=== PATIENT | female | born 1955 | race Caucasian/White ===

== ENCOUNTER 2017-12-05 18:09 | Inpatient (IN) | payer MEDICARE, MEDICAID, SELFPAY ==
[2017-12-05] VITALS (28 sets, daily range): BP systolic 105–145; BP diastolic 54–93; PULSE 78–120; RESP 12–21; TEMP 36.1–37; O2SAT 94–100
--- NOTE | 2017-12-05 | DI.RAD.S_ITS ---
PROCEDURE: XR ACUTE ABDOMEN SERIES INDICATIONS: pain and distention after colonoscopy r/o perforation TECHNIQUE: One view chest and two views of the abdomen were acquired. COMPARISON: None. FINDINGS: Surgical changes and devices: None. Chest: Prominent free air is noted below the diaphragm, verified on decubitus view of the abdomen. Lungs are clear. Heart size is normal. No pleural effusions. Abdomen: Bowel gas pattern is gassy as expected post colonoscopy. Large air-fluid level in the stomach. No suspicious calcifications. Visualized solid organ contours appear normal. Bones: No suspicious bony lesions. IMPRESSION: 1. Pneumoperitoneum suspect for perforated viscus. 2. No acute findings in the chest. 3. Bowel pattern appears normal post colonoscopy noting distended stomach with prominent air fluid level. Note: Images were reviewed in person with Dr. Leonard at 1220 hrs. on 12/05/2017 Dictated by: Vladislav Dahl M.D. on 12/05/2017 at 12:15 Approved by: Vladislav Dahl M.D. on 12/05/2017 at 12:22
--- NOTE | 2017-12-05 | PATH_ITS ---
[facility] Accession Number: [id number] . 01 Material submitted: . PART A: GE JUNCTION BIOPSY PART B: POLYP AT 15CM . 02 Diagnosis: A. Gastroesophageal Junction, Biopsy: Squamous epithelium with mild active inflammation and invasive pseudohyphae consistent with esophageal candidiasis. Scant columnar epithelium negative for intestinal metaplasia. Negative for dysplasia and malignancy. . B. Colon, Polyp at 15 cm, Biopsy: Hyperplastic polyp. MRV/12/10/2017 . 02 Electronically signed: . Natalia Johnson MD, Pathologist NPI- [id number] . 01 Gross description: . A. The specimen is received in a container of formalin, labeled with the patient's name, designated GE junction biopsy. The specimen consists of three 0.2-0.3 cm, pale sumner-rawls biopsies and minute fragments of possible tissue and/or mucus which may not survive processing. ET cassette A1. B. The specimen is received in a container of formalin, labeled with the patient's name, designated polyp at 15 cm. The specimen consists of a 0.9 cm aggregate of minute-0.4 cm, thin, sumner-rawls biopsies. Entirely submitted in cassette B1. ([id number]) /FRR . 02 Microscopic: . Part A: A PAS stain was performed to evaluate for fungal organisms and is negative. However, the area of interest is not represented on the deeper levels used for the special stain. The control stain showed appropriate reactivity. . 02 Pathologist provided ICD-10: B37.81, K20.9 . 02 CPT . 539841, 560658, [id number] Performed at: 01 [facility] [address] [place] [address] [address], [place], [place] [id number] MD Roger Grissom MD Phone: [phone] Performed at: 02 [facility] [id number] [place] [id number] MD Diaz Richter MD Phone: [phone]
--- NOTE | 2017-12-05 09:41 | PM.PREOP ---
Pre-operative Note Interval Note Pre-op Check: History & Physical Reviewed by Physician and Exam Performed H&P completed within 30 days and has changed as indicated here:: Patient very nervous. She is in sinus tachycardia. She was also this way during her office visit.
[2017-12-05] MEDS: MIDAZOLAM 2 MG/2 ML VIAL IV (09:51)
[2017-12-05] MEDS: LACTATED RINGERS 1,000 ML 42 ML IV ×3 (10:45→16:17)
--- NOTE | 2017-12-05 11:22 | PM.OP.ENDO ---
Operative Date/Time/Diagnoses - Date of procedure: 12/05/17 Time of procedure: 11:23 Pre-op diagnosis: Weight loss abdominal pain screening exam April Post-op diagnosis: same (Stricture of the esophagus. Small polyps at 15 cm. Zeng colonic diverticulosis.) Procedure & Clinicians Study performed: EGD with biopsy and balloon dilatation through the scope. Colonoscopy with cold biopsy Same procedure as scheduled: Yes Indications: Weight loss , abdominal pain, screening Surgeon: Cheng Leonard Procedure Notes SCOAP/Timeout: Performed Procedure in detail: The patient was placed supine on her bed in the operating room. The anesthesiologist was involved due to her autistic condition, concerns over her ability to cooperate especially if sedated, and concerns about her airway and the need to carefully monitor her sedation. A bite block was inserted and topical anesthetic applied to the oropharynx. Scope was advanced through the bite block into the esophagus. The esophagus was normal to reach the GE junction. There was a stricture which I popped through and dilated just with the scope. The stomach insufflated well. The pyloric channel was patent. I saw no lesions in the body and antrum of the stomach. The duodenum was normal to the 3rd part. The scope was brought back into the stomach and retroflexed. There was no evidence of a hiatal hernia. There were no lesions of the proximal stomach. The scope was straightened and brought back into the area where the stricture had been. This was biopsied. I then passed a 12-15 mm diameter balloon through the scope. I dilated the stricture progressively until ultimately reaching the 15 mm marked. The balloon was removed. There was no unusual bleeding or evidence of tear. The scope the scope was removed. The patient was repositioned and a digital exam performed on the rectum. She had decreased sphincter tone. The scope was inserted advanced through the rectum into the sigmoid. Jose good sigmoid due to very large diverticula in this area. Family I made my way through the sigmoid into the descending transverse and ascending colon. The cecum was reached identified by the of the appendiceal opening and the ileocecal valve. A stiffener were had been applied to get to that region. The terminal ileum was cannulated and was normal in appearance. Scope was gradually brought out. I did note diverticuli throughout the colon. Heaviest concentration was in the sigmoid. The scope was brought to 15 cm where 3 polyps were identified and removed. These were all tiny. The scope was retroflexed in the rectum. Patient was noted to have small internal hemorrhoids with some scarring. The scope was removed and the patient tolerated the procedures well. Scope withdrawal time: 7 min Sedation minutes: 0 Findings: diverticulosis, internal hemorrhoids and stricture (Esophagus at the GE junction) Specimen(s): other (Polyps and stricture) Complications: none Recommendations: Colonscopy in 5 years (Due to family history) and Prescription for (Omeprazole) Plan for aftercare: Follow-up as needed Disposition: PACU
--- NOTE | 2017-12-05 12:10 | SUR.PHASEI ---
XRAYS TAKEN, PT COMTINUES TO MOAN AND C/O ABDOMEN PAIN, ABDOMEN REMAINS ROUND DISTENDED AND SLIGHTLY FIRM, PT IS PASSING FLATUS AND IS BELCHING.
--- NOTE | 2017-12-05 12:26 | SUR.PHASEI ---
PT STATING SHE FEELS BETTER BUT MY STOMACH STILL HURTS
--- NOTE | 2017-12-05 12:54 | SUR.PHASEI ---
PT UP TO BEDSIDE COMODE TO VOID, CONTINUES TO PASS GAS. STATING SHE FEELS A LITTLE BIT BETTER BUT MY STOMACH STILL HURTS. NO LONGER GROANING AND PT APPEARS MORE COMFORTABLE, ABDOMEN REMAINS FIRM AND IS SLIGHTLY LESS DISTENDED AT THIS TIME.
[2017-12-05] MEDS: CEFOTETAN 2 GM/50 ML PIGGYBACK IV (13:28)
--- NOTE | 2017-12-05 13:29 | SUR.PHASEII ---
family and care takers in to sit with pt at bedside.
[2017-12-05] MEDS: metroNIDAZOLE 500 MG/100 ML PIGGYBACK 100 MG IV ×2 (13:43→19:29)
--- NOTE | 2017-12-05 13:52 | SUR.PHASEII ---
up to bedside commode to void and passing gas. family and caare givers remain at bedside with pt.
--- NOTE | 2017-12-05 14:08 | SUR.PHASEII ---
REPORT TO DIRECTOR OF ASSESSINGNORA MCCARTHY PT TO OR.
--- NOTE | 2017-12-05 14:46 | SUR.OPER ---
Supine on padded OR bed, head on pillow, arm padded and tucked at side, legs uncrossed, safety belt at thigh, tape over blanket over lower legs .
[2017-12-05] MEDS: BUPIVACAINE 0.5% (PF) 30 ML VIAL INJ (15:02)
[2017-12-05] MEDS: METHYLENE BLUE 50 MG/10 ML VIAL 25 MG INJ (16:04)
--- NOTE | 2017-12-05 16:56 | P.OP_ITS ---
Operative Date/Time/Diagnoses - Date of procedure: 12/05/17 Time of procedure: 16:40 Pre-op diagnosis: Perforated viscus after EGD and colonoscopy Post-op diagnosis: same Procedure & Clinicians Procedure: Laparoscopy. Esophagoscopy Same procedure as scheduled: Yes Indications: Free air Surgeon: Cheng Leonard Lean Process Deployment Consultant: Diaz Restrepo Anesthesia Type: General Operative Notes Findings: No evidence perforation except for air within the leaves of the gastrohepatic and gastrosplenic mesentery Closure Type: primary Specimen(s): none sent Implants & Drains: None Estimated Blood Loss (mL): 10 Blood products transfused: none Procedure in detail: Patient is placed supine on the operating table underwent general endotracheal anesthesia. With the insertion of that gastric tube in the stomach decompressed nicely and I decided to proceed with a laparoscopy. She was prepped and draped in the usual fashion. Small incision was made beneath the umbilicus and carried down under direct vision peritoneal cavity. Stay sutures of 0 Polysorb were placed the fascia. Bass cannula was inserted. I placed an additional port in the left abdomen at the level of umbilicus. I examined the pelvis and could not see any free fluid. There was no evidence of any perforation. I could examine the colonic wall well. Around the stomach there were obvious gas bubbles within the leafs of the gastric mesenteries. I was highly suspicious that the patient had an esophage perforation. Additional ports were placed in the upper abdomen and 1 in the right abdomen to hold the liver up. All of these were 5 mm ports. I dissected medially and anteriorly around the esophagus and could find no evidence of any injury. We divided short gastrics the proximal 3rd so I could rotate the stomach and examined the posterior wall of the esophagus in the left wall well. Again there was no evidence of any trauma to the region. We inserted a flexible endoscope and examined the area. There was no obvious perforation. There was no air bubbling noted around the exposed areas of the esophagus. I could see the light well and the movement of the scope through the area by examining the esophageal wall where I had dissected it free. The endoscope was brought just above the area of the dilatation and blue dye was injected and again there was no release of any blue dye. Air was insufflated in the stomach distended and I could see no evidence of any bubbling. At this point with no obvious major injury to the esophagus we decided to look at the rectum again. After examining and normal sigmoid to the peritoneal reflection, a rigid scope was inserted into the rectum and air insufflated pressing the sigmoid. Fluid had been placed in the pelvis. There was no evidence of any air bubbling. Air and rigid scope were removed. At this point with no obvious injury or source of the air which was almost all right around the stomach I decided to stop the procedure examining the descending colon and the right colon transverse colon there was no obvious trauma to any of those areas. During the procedure adhesed small amount of adhesions of the cecum to the anterior abdominal wall and the sigmoid to the left anterior abdominal wall were taken down. There was very little blood loss through the procedure. Patient was awakened and taken recovery room good condition. Plan to continue broad-spectrum antibiotics and consider a Gastrografin study of the esophagus. Complications: none Condition: stable Disposition: PACU Plan for aftercare: Admit to inpatient status jean paul GÓMEZO
--- NOTE | 2017-12-05 18:31 | PC.NURSE ---
patient is asleep on admission to floor from pacu at 1730. iv is patent and scd's on are on and active. ba is active. history and admission done with family/caregivers at bedside. cousin Maria R is her gaurdian, suellen helps provide her care. Richar is patient's other caregiver, who will be staying overnight night. patient is strict npo and caregivers are aware of that. pulse ox is on, 98% on 1l nc. call light is in reach. caregivers oriented to use of call light, and verbalize understanding not to get patient up out of bed without staff present. will continue to monitor.
[2017-12-05] MEDS: DEXTROSE 5%-0.45% NS 1,000 ML 100 ML IV (18:46)
[2017-12-05] MEDS: FLUCONAZOLE 200 MG/100 ML PIGGYBACK IV (20:23)
[2017-12-05] MEDS: CEFTRIAXONE 1 GM/50 ML FROZ.PIGGY IV (21:04)
[2017-12-05 21:36] LABS: Add Manual Diff / Slide Review NO; Eosinophils Percent Auto 0.1 % (2-4); Hematocrit 41.4 % (36-46); Hemoglobin 14.2 g/dL (12.0-16.0); Lymphocytes Percent Auto 2.6 % (25-40); Mean Corpuscular HGB Conc 34.2 % (30-36); Mean Corpuscular Volume 93.5 fL (80-100); Monocytes Percent Auto 2.2 % (3-14); Neutrophils Absolute Auto 12600 /uL (3000-5900); Neutrophils Percent Auto 95.1 % (50-75); Platelet Count 201 X10^3/uL (150-400); Red Blood Cell Count 4.43 X10^6/uL (4.0-5.2); Red Cell Distribution Width 12.9 % (11.6-14.8); White Blood Cell Count 13.2 X10^3/uL (4.5-11.0)
--- NOTE | 2017-12-06 | DI.CT.S_ITS ---
PROCEDURE: CT CHEST ABDOMEN W CON INDICATIONS: R/O PERFORATION OF ESOPHAGUS SCAN AFTER GASTROGRAFIN SWALLOW TECHNIQUE: After the administration of oral contrast and intravenous contrast, 5 mm thick sections acquired from the lung apices to the iliac crests. 5 mm coronal and sagittal reformats were performed, with additional 7 mm coronal MIP reformats through the lungs. For radiation dose reduction, the following was used: automated exposure control, adjustment of mA and/or kV according to patient size. COMPARISON: [facility], CT, ABDOMEN/PELVIS WITH CONTRAST, 10/31/2017, 13:17. FINDINGS: Image quality: Excellent. CHEST: Lungs and pleura: No acute air space opacities except for linear atelectasis at the right lung base. No pleural effusions or pneumothorax but there is mild pneumomediastinum and a small amount of extravasated air extends into the subcutaneous soft tissues, tracking into the abdominal body wall. Central and peripheral airways are patent and normal in caliber. Mediastinum: Heart size is normal. No pericardial effusion. No mediastinal or hilar adenopathy by size criteria. Thoracic aorta and central pulmonary arteries are normal in size. Esophagus is normal in caliber. No hiatal hernia. Extravasation of oral contrast into the mediastinum is not present. No pleural oral contrast is seen. Chest wall: No axillary or supraclavicular adenopathy by size criteria. Thyroid gland appears normal where well visualized. ABDOMEN: Solid organs: Liver is normal in size and enhancement. Gallbladder appears normal. Biliary system is non dilated. Pancreas enhances normally. Spleen is normal in size and enhancement. No adrenal nodules. Kidneys are normal in size and enhancement, without hydronephrosis. Peritoneum and bowel: Bowel loops demonstrate normal wall thickness and caliber. No free fluid or air but there is retroperitoneal gas tracking along the gastric margin, and extending to a small degree superficially into the subcutaneous soft tissues.. Nodes and vessels: No retroperitoneal or mesenteric adenopathy by size criteria. Aorta and inferior vena cava are normal in caliber. Bones: No suspicious bony lesions. No vertebral body compression fractures. Miscellaneous: No ventral hernias. IMPRESSION: Mild pneumomediastinum, mild pneumoretroperitoneum, no extravasation of free air into the peritoneal space or pleural space is seen. No extravasation of ingested oral contrast into the mediastinum or pleural space or into the peritoneal space or retroperitoneum is found. Mild linear atelectasis right lung base posteriorly, medially. Dictated by: Boom Perkins M.D. on 12/06/2017 at 12:17 Approved by: Boom Perkins M.D. on 12/06/2017 at 12:24
[2017-12-06] MEDS: metroNIDAZOLE 500 MG/100 ML PIGGYBACK 100 MG IV ×4 (00:37→19:03)
[2017-12-06] MEDS: INSULIN ASPART 100 UNIT/ML INSULN PEN SUBCUT ×4 (00:37→17:55)
[2017-12-06 01:31] VITALS: BP 121/64; PULSE 100; RESP 20; TEMP 36.4; O2SAT 98
--- NOTE | 2017-12-06 04:56 | PC.NURSE ---
NOC Note: Pt tearful early this morning stating that she wants to go home and she misses eating. Reassurance given, caregiver rooming in for the night. SBA to use BSC. Pt denies pain but signs of discomfort noted with transferring from bed to BSC, Pt declined pain medication but was willing to try ans ice pack on her ABD. Drsgs to ABD are CDI.
[2017-12-06 06:24] LABS: Add Manual Diff / Slide Review NO; Basophils Percent Auto 0.4 % (0-2); Hematocrit 37.5 % (36-46); Hemoglobin 13.1 g/dL (12.0-16.0); Lymphocytes Percent Auto 5.6 % (25-40); Mean Corpuscular HGB Conc 34.8 % (30-36); Mean Corpuscular Hemoglobin 32.5 PG (26-34); Mean Corpuscular Volume 93.4 fL (80-100); Monocytes Percent Auto 3.2 % (3-14); Neutrophils Absolute Auto 13600 /uL (3000-5900); Neutrophils Percent Auto 90.8 % (50-75); Platelet Count 205 X10^3/uL (150-400); Red Blood Cell Count 4.02 X10^6/uL (4.0-5.2); Red Cell Distribution Width 12.9 % (11.6-14.8)
[2017-12-06 06:26] VITALS: BP 109/59; PULSE 90; RESP 18; TEMP 36.8; O2SAT 97
[2017-12-06 06:28] LABS: BUN Creatinine Ratio 12.9 (6-22); Blood Urea Nitrogen 9 mg/dL (7-17); Calcium 8.8 mg/dL (8.4-10.2); Carbon Dioxide 22 mmol/L (22-32); Chloride 103 mmol/L (98-107); Estimated Glomerular Filt Rate > 60.0 mL/min (>60); Glucose 259 mg/dL (70-100); HEMOLYSIS < 15 (0-50); Sodium 139 mmol/L (137-145)
[2017-12-06 07:40] VITALS: BP 116/68; PULSE 105; RESP 16; TEMP 37.3; O2SAT 96
--- NOTE | 2017-12-06 08:00 | DI.RAD.S_ITS ---
PROCEDURE: FL BARIUM SWALLOW INDICATIONS: 61 year-old female with pneumoperitoneum after recent colonoscopy and EGD procedures. Assess for esophageal or gastric rupture. COMPARISON: [facility], CR, XR ACUTE ABDOMEN SERIES, 12/05/2017, 11:54. [facility], CT, ABDOMEN/PELVIS WITH CONTRAST, 10/31/2017, 13:17. FINDINGS: Examination is limited due to autistic patient. Function: There is ready flow of Gastrografin contrast from the esophagus into the nondistended stomach. No contrast extravasation is identified. At the request of the surgeon, dilute barium was not administered for further evaluation at this point. Morphology: Single contrast images demonstrate no extravasation. No extrinsic mass effects or diverticula. Limited images of the stomach demonstrate normal appearance. IMPRESSION: A source of distal esophageal or gastric perforation is not identified fluoroscopically to explain recent postprocedural pneumoperitoneum. Patient will be transferred for CT scan for further evaluation as specifically requested by [facility]. Dictated by: Ben Hurt M.D. on 12/06/2017 at 12:12 Approved by: Ben Hurt M.D. on 12/06/2017 at 12:17
[2017-12-06] MEDS: LACTATED RINGERS 1,000 ML 100 ML IV (08:32)
[2017-12-06] MEDS: PANTOPRAZOLE 40 MG VIAL IV (08:38)
[2017-12-06] MEDS: CEFTRIAXONE 1 GM/50 ML FROZ.PIGGY IV ×2 (08:38→21:12)
[2017-12-06] MEDS: ENOXAPARIN 40 MG/0.4 ML SYRINGE SUBCUT (08:38)
[2017-12-06] MEDS: FLUCONAZOLE 100 MG/50 ML PIGGYBACK IV (10:24)
--- NOTE | 2017-12-06 11:30 | CM.DANOTE ---
DCP Assessment: Pt is a 61 yo female, resident of [place]. Pt admitted inpatient as of 12/05/17 for EGD/colonoscopy; w/h/o abd pain, nausea, and throwing up per notes. Pt's PCP is DAVE Tolliver, Insurance is Medicare/Medicaid. Introduced SW role this morning to pt's cousin/legal guardian Carolyn Suazo P# [phone], work P# [phone] (legal guardian since 1981). Pt lying in bed, eyes mostly closed during this conversation. Also present were two women/cgs from [facility]. This agency provides pt a total of 6 cgs, that collectively, provide around the clock care for pt. They have been involved since December 2016. Per cg; Pt mostly requires supervision, then w/more prompting: pt lives w/a roommate, does not drive, requires assist w/bathing, grooming, meal prep, meds and most ADLs. Pt's family/cgs somewhat distracted by a 16 mo old in the rm and anxious about whats next for pt. All appreciative for the visit and would like another visit Saturday if possible. This COMPENSATION ADJUSTER hopes to glean more information at that time. Carolyn expects pt to return home when medically cleared. No h/o HH or SNF. No H+P to indicate pt's baseline, reviewed last clinic visit note by Lindsey Tolliver; pt w/developmental disability. Following closely for coordination of safe DCP; pending medical course / POC. Natalia Frias COMPENSATION ADJUSTER
[2017-12-06 15:35] VITALS: BP 150/89; PULSE 98; RESP 18; TEMP 37; O2SAT 98
--- NOTE | 2017-12-06 17:40 | PM.PNPO.1 ---
Subjective Date Patient Seen: 12/06/17 Time Patient Seen: 12:40 Interval history: The patient is feeling much better. Very little abdominal pain. Exam Vital Signs (past 8 hours): Vital Signs - 8 hr 12/06/17 15:35 Temperature 98.6 F Pulse Rate 98 H Respiratory Rate 18 Blood Pressure 150/89 H Pulse Oximetry 98 Pulse Oximetry 98 Oxygen Delivery Method Nasal Cannula Oxygen Flow Rate 0 Narrative Exam Narrative: Lungs are clear to auscultation. Good effort. Abdomen is soft. Dressings are intact. Objective Imaging CT scan - chest: My impression: No evidence of leak on this or the barium swallow. Radiologist's impression: Agree with the radiologist's report which was the same. Labs Result Diagrams: 12/06/17 06:00 12/06/17 06:00 Labs: Laboratory Results - last 24 hr 12/05/17 12/06/17 12/06/17 21:28 06:00 06:00 WBC 13.2 H 15.0 H RBC 4.43 4.02 Hgb 14.2 13.1 Hct 41.4 37.5 MCV 93.5 93.4 MCH 32.0 32.5 MCHC 34.2 34.8 RDW 12.9 12.9 Plt Count 201 205 Neut % (Auto) 95.1 H 90.8 H Lymph % (Auto) 2.6 L 5.6 L [place] % (Auto) 2.2 L 3.2 Eos % (Auto) 0.1 L 0.0 L Baso % (Auto) 0.0 0.4 Neut # (Auto) 99969 H 16720 H Sodium 139 Potassium 4.0 Chloride 103 Carbon Dioxide 22 BUN 9 Creatinine 0.70 Estimated GFR > 60.0 BUN/Creatinine Ratio 12.9 Glucose 259 H Calcium 8.8 Assessment & Plan Post-op Postoperative Procedures Operation Date: 12/05/17 09:45 Actual Procedures Side Surgeon p Esophagogastroduodenoscopy Cheng Leonard MD s Colonoscopy Cheng Leonard MD Operation Date: 12/05/17 13:45 Actual Procedures Side Surgeon p EXPLORATORY LAPAROSCOPY WITH EGD Cheng Leonard MD Postoperative day: 1 Postoperative status: doing well and other (Glucose is elevated. Changed her from D5 to LR. Seems to have brought her sugars down nicely.) Postoperative plan: other (Change IV fluids to LR. Start Lovenox for DVT prophylaxis. Diet tomorrow morning) Time Spent With Patient 25 - 35 minutes (Patient is seen twice today.)
--- NOTE | 2017-12-06 17:46 | P.PN_ITS ---
Subjective Date Patient Seen: 12/06/17 Time Patient Seen: 12:40 Interval history: The patient is feeling much better. Very little abdominal pain. Exam Vital Signs (past 8 hours): Vital Signs - 8 hr 3 12/06/17 15:35 Temperature 98.6 F Pulse Rate 98 H Respiratory Rate 18 Blood Pressure 150/89 H Pulse Oximetry 98 Pulse Oximetry 98 Oxygen Delivery Method Nasal Cannula Oxygen Flow Rate 0 Narrative Exam Narrative: Lungs are clear to auscultation. Good effort. Abdomen is soft. Dressings are intact. Objective Imaging CT scan - chest: My impression: No evidence of leak on this or the barium swallow. Radiologist's impression: Agree with the radiologist's report which was the same. Labs Result Diagrams: 12/06/17 06:00 12/06/17 06:00 Labs: Laboratory Results - last 24 hr 12/05/17 12/06/17 12/06/17 21:28 06:00 06:00 WBC 13.2 H 15.0 H RBC 4.43 4.02 Hgb 14.2 13.1 Hct 41.4 37.5 MCV 93.5 93.4 MCH 32.0 32.5 MCHC 34.2 34.8 RDW 12.9 12.9 Plt Count 201 205 Neut % (Auto) 95.1 H 90.8 H Lymph % (Auto) 2.6 L 5.6 L [place] % (Auto) 2.2 L 3.2 Eos % (Auto) 0.1 L 0.0 L Baso % (Auto) 0.0 0.4 Neut # (Auto) 26410 H 16833 H Sodium 139 Potassium 4.0 Chloride 103 Carbon Dioxide 22 BUN 9 Creatinine 0.70 Estimated GFR > 60.0 BUN/Creatinine Ratio 12.9 Glucose 259 H Calcium 8.8 Assessment & Plan Post-op Postoperative Procedures Operation Date: 12/05/17 09:45 Actual Procedures Side Surgeon p Esophagogastroduodenoscopy Cheng Leonard MD s Colonoscopy Cheng Leonard MD Operation Date: 12/05/17 13:45 Actual Procedures Side Surgeon p EXPLORATORY LAPAROSCOPY WITH EGD Cheng Leonard MD Postoperative day: 1 Postoperative status: doing well and other (Glucose is elevated. Changed her from D5 to LR. Seems to have brought her sugars down nicely.) Postoperative plan: other (Change IV fluids to LR. Start Lovenox for DVT prophylaxis. Diet tomorrow morning) Time Spent With Patient 25 - 35 minutes (Patient is seen twice today.)
[2017-12-06 19:58] VITALS: BP 136/78; PULSE 113; RESP 18; TEMP 36.8; O2SAT 97
[2017-12-07 00:02] VITALS: BP 142/68; PULSE 93; RESP 18; TEMP 37.1; O2SAT 95
[2017-12-07] MEDS: LACTATED RINGERS 1,000 ML 100 ML IV (00:10)
[2017-12-07] MEDS: metroNIDAZOLE 500 MG/100 ML PIGGYBACK 100 MG IV ×3 (00:11→12:44)
--- NOTE | 2017-12-07 02:08 | PC.NURSE ---
Assumed care of pt from outgoing shift at 2300, 6-1... Pt asleep at this time, caregiver in room,asleep. fluids infusing, pt rr regular, no distress noted, bed alarm on, side rails upx3. will continue to monitor pt for safety. 0030 update- pt IV beeping, given medications and fluids, tubing changed. pt compliant with nursing assessments. will continue to monitor pt for safety.
[2017-12-07 05:11] VITALS: BP 123/71; PULSE 92; RESP 18; TEMP 36.4; O2SAT 96
[2017-12-07 06:24] LABS: Add Manual Diff / Slide Review NO; Basophils Percent Auto 0.1 % (0-2); Hematocrit 38.1 % (36-46); Hemoglobin 13.1 g/dL (12.0-16.0); Lymphocytes Percent Auto 17.7 % (25-40); Mean Corpuscular HGB Conc 34.3 % (30-36); Mean Corpuscular Volume 93.3 fL (80-100); Monocytes Percent Auto 5.3 % (3-14); Neutrophils Absolute Auto 9100 /uL (3000-5900); Neutrophils Percent Auto 76.9 % (50-75); Platelet Count 207 X10^3/uL (150-400); Red Blood Cell Count 4.08 X10^6/uL (4.0-5.2); Red Cell Distribution Width 13.1 % (11.6-14.8); White Blood Cell Count 11.9 X10^3/uL (4.5-11.0)
[2017-12-07 08:26] VITALS: BP 140/82; PULSE 78; RESP 18; TEMP 37.1; O2SAT 96
[2017-12-07] MEDS: ENOXAPARIN 40 MG/0.4 ML SYRINGE SUBCUT (09:42)
[2017-12-07] MEDS: CEFTRIAXONE 1 GM/50 ML FROZ.PIGGY IV (09:43)
[2017-12-07] MEDS: PANTOPRAZOLE 40 MG VIAL IV (09:44)
[2017-12-07] MEDS: FLUCONAZOLE 100 MG/50 ML PIGGYBACK IV (10:51)
[2017-12-07 12:16] VITALS: BP 153/88; PULSE 101; RESP 18; TEMP 36.8; O2SAT 96
[2017-12-07] MEDS: INSULIN ASPART 100 UNIT/ML INSULN PEN SUBCUT ×2 (12:43→21:14)
[2017-12-07 15:57] VITALS: BP 140/76; PULSE 73; RESP 16; TEMP 36.5; O2SAT 97
[2017-12-07] MEDS: LACTATED RINGERS 1,000 ML 42 ML IV (16:23)
[2017-12-07] MEDS: METFORMIN HCL 500 MG TABLET PO (16:34)
[2017-12-07 20:20] VITALS: BP 122/86; PULSE 97; RESP 18; TEMP 36.7; O2SAT 97
[2017-12-08 00:50] VITALS: BP 148/84; PULSE 88; RESP 16; TEMP 36.7; O2SAT 96
[2017-12-08 03:31] VITALS: BP 150/90; PULSE 83; RESP 17; TEMP 36.7; O2SAT 97
[2017-12-08] MEDS: LEVOTHYROXINE 50 MCG TABLET PO (06:22)
[2017-12-08 06:24] LABS: Add Manual Diff / Slide Review NO; Basophils Percent Auto 0.5 % (0-2); Eosinophils Percent Auto 0.6 % (2-4); Hematocrit 37.2 % (36-46); Mean Corpuscular Hemoglobin 32.4 PG (26-34); Mean Corpuscular Volume 92.6 fL (80-100); Monocytes Percent Auto 6.6 % (3-14); Neutrophils Absolute Auto 5900 /uL (3000-5900); Neutrophils Percent Auto 64.3 % (50-75); Platelet Count 204 X10^3/uL (150-400); Red Blood Cell Count 4.02 X10^6/uL (4.0-5.2); White Blood Cell Count 9.1 X10^3/uL (4.5-11.0)
[2017-12-08 06:34] LABS: BUN Creatinine Ratio 7.1 (6-22); Blood Urea Nitrogen 5 mg/dL (7-17); Calcium 8.6 mg/dL (8.4-10.2); Carbon Dioxide 29 mmol/L (22-32); Chloride 105 mmol/L (98-107); Estimated Glomerular Filt Rate > 60.0 mL/min (>60); Glucose 123 mg/dL (70-100); HEMOLYSIS < 15 (0-50); Potassium 3.2 mmol/L (3.4-5.1); Sodium 141 mmol/L (137-145)
--- NOTE | 2017-12-08 07:05 | PC.NURSE ---
2300 6-3 assumed care of pt form outgoing shift. pt asleep, arouses to voice. caregiver at bedside. bed alarm on. side rails up x3. belongings and call light within reach. compliant with nursing assessments. will continue to monitor pt for safety. 0600- update- collected sample and sent. lab called and rejected sample as they said it was not watery enough to test. will attempt to collect another sample. Pt compliant with morning medications. SBA to BR. uses call light. waits for [facility]. will continue to monitor pt for safety.
[2017-12-08 07:30] VITALS: BP 156/99; PULSE 108; RESP 18; TEMP 36.7; O2SAT 96
--- NOTE | 2017-12-08 08:00 | DI.RAD.S_ITS ---
PROCEDURE: XR ACUTE ABDOMEN SERIES INDICATIONS: f/u after laparoscopy. distended TECHNIQUE: One view chest and two views of the abdomen were acquired. COMPARISON: None. FINDINGS: Surgical changes and devices: None. Chest: Lungs are clear. Heart size is normal. No pleural effusions. No pneumoperitoneum. Abdomen: Bowel gas pattern is normal. No suspicious calcifications. Visualized solid organ contours appear normal. Bones: No suspicious bony lesions. IMPRESSION: No acute cardiopulmonary or intra-abdominal findings. Dictated by: Vilma Reyes M.D. on 12/08/2017 at 9:20 Approved by: Vilma Reyes M.D. on 12/08/2017 at 9:21
[2017-12-08] MEDS: INSULIN ASPART 100 UNIT/ML INSULN PEN SUBCUT (08:12)
[2017-12-08] MEDS: POTASSIUM CHLORIDE 20 MEQ in SODIUM CHLORIDE 0.9% 250 ML 130 ML IV (08:12)
[2017-12-08] MEDS: POTASSIUM CHLORIDE 20 MEQ TAB PO (08:13)
[2017-12-08] MEDS: PANTOPRAZOLE 40 MG VIAL IV (08:13)
[2017-12-08] MEDS: METFORMIN HCL 500 MG TABLET PO ×2 (08:13→13:01)
[2017-12-08] MEDS: ENOXAPARIN 40 MG/0.4 ML SYRINGE SUBCUT (08:13)
[2017-12-08 09:21] LABS: Clostridium Difficile Tox PCR Negative for C. diff
--- NOTE | 2017-12-08 10:52 | PM.DS.1 ---
History of Present Illness Chief complaint: EGD colonoscopy [id number] Narrative: Mindi Kee is a 61 year old female She presented with vague abdominal pain and weight loss. She underwent an EGD and colonoscopy and had free air postprocedure. Because of the uncertainty of whether the colon had been the source of the free air or the esophageal dilatation she was taken to the operating room emergently. Discharge Providers Date of admission: 12/05/17 18:09 Primary care physician: DAVE Curry Discharge provider: Cheng Leonard MD Summary Discharge Diagnosis: Micro perforation of the esophagus Autism mild to moderate with reduced mentation but normal motor function. Fair social interaction Hypothyroidism chronic Diabetes mellitus type 2 chronic well controlled with medication but with glucose elevation postoperatively Diarrhea as an effect of the antibiotics given and the water radiologic imaging Hospital Course: The patient underwent emergent operation. She was found to have gas bubbles in the gastro hepatic and gastrosplenic omentum. There was no fluid within the abdomen and no spillage of material. Careful search led to not finding any free perforation. It was clear away ever she had had some perforation. Studies postoperatively he with a Gastrografin swallow and CT scan failed to reveal any leakage of material. She was presumed to have a micro perforation that self sealed. She was treated with broad-spectrum antibiotics for several days. She was kept NPO. She was gradually begun on liquids then a full liquid diet. She was discharged on a full liquid diet for several more days. Her white blood cell count was elevated postoperatively as would be expected. It declined to normal by the time of discharge. Antibiotics were stopped 2 days prior to discharge. She had diarrhea most likely related to the antibiotics and the water-soluble contrast. C difficile testing was negative. Status at Discharge Cognitive/behavioral status at discharge: Baseline Functional status at discharge: independent ambulation Overall status at discharge: patient is progressing back to baseline (Most fully recovered from her operation.) Time Spent with Patient Less than 30 minutes Exam Vital Signs (past 8 hours): Vital Signs - 8 hr 12/08/17 03:31 Temperature 98.1 F Pulse Rate 83 Respiratory Rate 17 Blood Pressure 150/90 H Pulse Oximetry 97 Pulse Oximetry 97 Oxygen Delivery Method Room Air Oxygen Flow Rate 0 Narrative Exam Narrative: Lungs are clear to auscultation. Heart regular rate and rhythm without murmur gallop. Abdomen appears to be mildly distended but soft nontender. Patient is alert. Pleasant. Objective Imaging Chest/abdomen: My impression: Normal gas pattern. Tiny amount of free air as would be expected after laparoscopy. Air appears to outline the appendix on one view. Radiologist's impression: Pending Labs Result Diagrams: 12/08/17 06:05 12/08/17 06:05 Labs: Laboratory Results - last 24 hr 12/08/17 12/08/17 12/08/17 06:05 06:05 07:15 WBC 9.1 RBC 4.02 Hgb 13.0 Hct 37.2 MCV 92.6 MCH 32.4 MCHC 35.0 RDW 13.0 Plt Count 204 Neut % (Auto) 64.3 Lymph % (Auto) 28.0 [place] % (Auto) 6.6 Eos % (Auto) 0.6 L Baso % (Auto) 0.5 Neut # (Auto) 5900 Sodium 141 Potassium 3.2 L Chloride 105 Carbon Dioxide 29 BUN 5 L Creatinine 0.70 Estimated GFR > 60.0 BUN/Creatinine Ratio 7.1 Glucose 123 H D Calcium 8.6 C. difficile Tox (PCR) Negative for c. diff Discharge Plan Discharge Plan Patient Disposition: Assisted Living Other facility: [facility] Under care of provider: Lindsey Tolliver Transportation: Facility vehicle I certify the postop hospital prison care is medically necessary on a continuing basis for any conditions for which he/ she received care during this hospitalization.: No The receiving facility has agreed to accept transfer and provide medical treatment.: Yes Discharge Med Rec/Prescriptions Prescriptions: New omeprazole 20 mg tablet,delayed release (DR/EC) 20 mg PO BID Qty: 60 RF: 5 Continue Lancet: Device BID Qty: 1 RF: 2 simvastatin 40 MG tablet 40 mg PO HS Qty: 90 RF: 3 levothyroxine [Synthroid] 50 MCG tablet 50 mcg PO QAM Qty: 90 RF: 1 Glucose: Test Strips SEE INSTRUCTIONS Qty: 100 RF: PRN Lancets See Label Instructions MISC SEE INSTRUCTIONS Qty: 1 RF: 3 metformin [Glucophage] 500 MG tablet 500 mg PO TIDCC RF: 0 folic acid 400 mg PO DAILY RF: 0 Discharge Orders: Discharge (Order); Ordered 12/08/17 Ordered By: Cheng Leonard Discharge Health Status Brief summary of current health status: Doing well postoperatively. Has returned to normal function. Must recover from her laparoscopic procedure. Multidrug resistant organism: No MDRO Date verified: 12/08/17 Precautions: [place] Provider Discharge Instructions Diet: Full Liquid Food texture: Soft Diet comment: Keep her on a full liquid soft diet for 2 more days. Then may resume normal Activity: As tolerated. Avoid lifting over 10 lb, straining, pool or tub for 4 weeks. Wound Care Report to your healthcare provider any signs of infection, such as:: chills, fever, night sweats, increased pain and unusual drainage Dressing: Does not need anything over her Steri-Strips. There is no problem if they fall off. Do not remove them however unless they are loose. Visit Report/Discharge Packet Instructions: DI for Laparoscopy Discharge Data Primary Care Provider: Lindsey Tolliver Attending Provider: Cheng Leonard Admit Date/Time: 12/05/17 18:09
[2017-12-08] MEDS: FLUCONAZOLE 100 MG/50 ML PIGGYBACK IV (11:36)
--- NOTE | 2017-12-08 12:26 | PC.NURSE ---
C.DIFF NEG. ENTERIC ISOLATION REMOVED. PT AWARE. D/C TO HOME ORDERED. STUFFED ANIMAL LOST IN HOSPITAL. PER EVS MAY BE IN SOLID LINENS. PT OR CAREGIVER INSTRUCTED TO CALL HOSPITAL LOST AND FOUND TO SEE IF FOUND. PT VERBALIZED UNDERSTAND. COORDINATOR AWARE.
== END 2017-12-08 14:00 | disposition home or self-care (01) | DRG 908 ==
LOC: OR 12-07 08:04
PROVIDERS: Admitting Provider Specialist; PCP Internal Medicine; Visit Provider Specialist
PROC: 0DJ08ZZ Inspection of Upper Intestinal Tract, Via Natural or Artificial Opening Endoscopic (ICD-10-PCS; CPT 43235; principal; 2017-12-05 09:45)
PROC: 0DJD8ZZ Inspection of Lower Intestinal Tract, Via Natural or Artificial Opening Endoscopic (ICD-10-PCS; CPT 45378; 2017-12-05 09:45)
PROC: 0DTE0ZZ Resection of Large Intestine, Open Approach (ICD-10-PCS; principal; 2017-12-05 13:45)
DX: K91.71 Accidental puncture and laceration of a digestive system organ or structure during a digestive system procedure (principal); F84.0 Autistic disorder; Y83.8 Other surgical procedures as the cause of abnormal reaction of the patient, or of later complication, without mention of misadventure at the time of the procedure; Y92.230 Patient room in hospital as the place of occurrence of the external cause; K22.2 Esophageal obstruction; R63.4 Abnormal weight loss; K57.30 Diverticulosis of large intestine without perforation or abscess without bleeding; K63.5 Polyp of colon; F79 Unspecified intellectual disabilities; K64.8 Other hemorrhoids; E03.9 Hypothyroidism, unspecified; E11.8 Type 2 diabetes mellitus with unspecified complications
CPT/HCPCS: 36415; 43239; 45380; 71260; 74022; 74160; 74220; 80048; 82962; 85025; 87493; 88305; 88312; 94760; C9113; J0131; J1100; J1450; J1650; J2250; J2405; J2704; J3010; J3480; Q9967; Q9968

== ENCOUNTER → 2018-05-14 15:11 | Outpatient (CLI) | payer MEDICARE, MEDICAID, SELFPAY ==
[2018-05-14 16:18] LABS: Hemoglobin A1C% w Est Avg Glu 6.9 % (4.0-6.0)
[2018-05-14 17:04] LABS: Thyroid Stimulating Hormone 0.21 uIU/mL (0.47-4.68)
== END ==
PROVIDERS: PCP Internal Medicine; Visit Provider Internal Medicine
DX: E03.9 Hypothyroidism, unspecified (principal); E11.9 Type 2 diabetes mellitus without complications
CPT/HCPCS: 36415; 83036; 84443

== ENCOUNTER → 2019-02-19 09:01 | Outpatient (CLI) | payer MEDICARE, MEDICAID, SELFPAY ==
--- NOTE | 2019-02-19 | DI.US.S_ITS ---
PROCEDURE: US ABDOMEN COMPLETE INDICATIONS: GALLBLADDER POLYP TECHNIQUE: Real-time scanning was performed of the abdominal and retroperitoneal organs, with image documentation. COMPARISON: [facility], CT, CT CHEST ABDOMEN W CON, 12/06/2017, 12:02. FINDINGS: Liver: Liver is borderline prominent. There is a focus of heteroechogenicity within the caudate lobe measuring 23 x 19 x 17 mm. There is a mild appearance of hepatic steatosis. Gallbladder: No stones are identified. There are multiple areas of non-mobile increased echogenicity the largest measuring 5.8 mm. Wall thickness is within normal limits measuring 1.4 mm. Biliary ducts: Intrahepatic bile ducts are non-dilated. Extrahepatic bile duct caliber measures 5.9 mm. Normal is 6-7 mm or less in diameter, or 10 mm or less post-cholecystectomy. Pancreas: Visualized portions of the pancreas are sonographically normal. Spleen: Spleen is normal in size and homogeneous in echotexture. Kidneys: Kidneys are normal in size and echotexture. Right kidney measures 9.5 cm long; left kidney measures 9.3 cm long. No hydronephrosis or nephrolithiasis. No solid masses. Aorta: Visualized aorta is normal in caliber at less than 3 cm. Iliacs: Proximal common iliac arteries are not well seen. IVC: Intrahepatic inferior vena cava is patent. Miscellaneous: No free abdominal fluid. IMPRESSION: 1. Mild hepatic steatosis. 2. Heteroechogenicity within the caudate suggestive of complex cyst. It appears unchanged compared to prior exam. 3. Nonmobile echogenic gallbladder foci suggestive of polyps. Dictated by: Precious Wilburn M.D. on 02/19/2019 at 13:43 Approved by: Precious Wilburn M.D. on 02/19/2019 at 13:50
== END ==
PROVIDERS: Family Provider Internal Medicine; PCP Internal Medicine; Visit Provider Nurse Practitioner Adult Health
DX: K82.4 Cholesterolosis of gallbladder (principal); K76.0 Fatty (change of) liver, not elsewhere classified
CPT/HCPCS: 76700

== ENCOUNTER → 2019-06-12 14:02 | Outpatient (CLI) | payer MEDICARE, MEDICAID, SELFPAY ==
--- NOTE | 2019-06-12 | DI.CT.S_ITS ---
PROCEDURE: CT ABDOMEN PELVIS W CON INDICATIONS: Other specified diseases of pancreas TECHNIQUE: After the administration of oral and intravenous contrast, 5 mm thick sections acquired from the diaphragms to the symphysis. 5 mm thick coronal and sagittal reformats were performed. For radiation dose reduction, the following was used: automated exposure control, adjustment of mA and/or kV according to patient size. COMPARISON: [facility], US, US ABDOMEN COMPLETE, 02/19/2019, 9:28. [facility], CT, ABDOMEN/PELVIS WITH CONTRAST, 10/31/2017, 13:17. FINDINGS: Image quality: Excellent. ABDOMEN: Lung bases: Lung bases are clear. Heart size is normal. Solid organs: Liver is normal in size and enhancement. Scattered cysts are present. Gallbladder is normal. Biliary system is non-dilated. Pancreas enhances normally. The livers moderate pancreatic ductal dilatation to a similar degree compared to 12/06/17. A cystic structure in the neck of the pancreas measures 1.6 cm and potentially communicates with the pancreatic duct. Spleen is normal in size and enhancement. No adrenal nodules. Kidneys are normal in size and enhancement, without hydronephrosis. Peritoneum and bowel: Stomach, small bowel, and colon loops are normal in caliber and wall thickness. Chronic morphology the cecal bascule is present. The distal colon and is in spasm. No free fluid or air. Nodes and vessels: No retroperitoneal or mesenteric adenopathy. Aorta and inferior vena cava are normal in caliber. Miscellaneous: No ventral hernias. PELVIS: Genitourinary: Bladder wall thickness is normal. The uterus demonstrates 3 rounded enhancing masses arising from the fundus consistent with fibroids. Ovaries are not identified. Miscellaneous: No inguinal hernias or adenopathy. Mild pelvic floor prolapse, mainly mild rectocele. Bones: No suspicious bony lesions. No vertebral body compression fractures. IMPRESSION: 1. Chronic pancreatic ductal dilatation with better visualization of the pancreatic neck cystic lesion measuring 1.6 cm. Further characterization using pancreatic protocol MRI is recommended. 2. Uterine fibroids. 3. Cecal bascule. Dictated by: Doris Vale M.D. on 06/12/2019 at 16:51 Approved by: Doris Vale M.D. on 06/12/2019 at 17:09
[2019-06-12 14:47] LABS: Alanine Aminotransferase 17 IU/L (<35); Albumin 4.8 g/dL (3.5-5.0); Albumin Globulin Ratio 1.5 (1.0-2.8); Alkaline Phosphatase 92 U/L (38-126); Aspartate Aminotransferase 23 IU/L (14-36); BUN Creatinine Ratio 28.8 (6-22); Bilirubin Total 0.5 mg/dL (0.2-1.3); Blood Urea Nitrogen 23 mg/dL (7-17); Calcium 9.9 mg/dL (8.4-10.2); Carbon Dioxide 26 mmol/L (22-32); Chloride 101 mmol/L (98-107); Estimated Glomerular Filt Rate > 60.0 mL/min (>60); Globulin 3.1 g/dL (1.7-4.1); Glucose 185 mg/dL (80-110); HEMOLYSIS < 15 (0-50); Potassium 3.8 mmol/L (3.4-5.1); Sodium 139 mmol/L (137-145); Total Protein 7.9 g/dL (6.3-8.2)
== END ==
PROVIDERS: PCP Internal Medicine; Visit Provider Nurse Practitioner Adult Health
DX: K86.89 Other specified diseases of pancreas (principal); K76.89 Other specified diseases of liver; D18.03 Hemangioma of intra-abdominal structures; D25.9 Leiomyoma of uterus, unspecified; K63.89 Other specified diseases of intestine
CPT/HCPCS: 36415; 74177; 80053; Q9967

== ENCOUNTER → 2020-03-11 12:34 | Outpatient (CLI) | payer MEDICARE, MEDICAID, SELFPAY ==
--- NOTE | 2020-03-11 | DI.MRI.S_ITS ---
PROCEDURE: MR ABDOMEN WO/W CON INDICATIONS: Lower abdominal pain, unspecified TECHNIQUE: Coronal HASTE, axial 2D FLASH in- and [id number]; axial breath-hold T2 FSE. Dynamic axial VIBE during the administration of contrast; post-contrast coronal VIBE or 2D FLASH with fat saturation from the hepatic dome to the iliac crests. Optional diffusion weighted imaging and ADC may be performed. COMPARISON: [facility], US, US ABDOMEN COMPLETE, 02/19/2019, 9:28. Merged With [facility], CT, CT ABDOMEN PELVIS W CON, 06/12/2019, 15:09. FINDINGS: Image quality: Excellent. Lung bases: No basal pleural effusions. Heart size is normal. Solid organs: Liver is normal in size and enhancement, and several small hepatic cysts can be seen within the liver parenchyma and the previously identified mildly lobulated cyst within the caudate lobe of the liver has not changed. Gallbladder appears free of inflammation . Biliary system is non dilated. Quality of visualization of the bile ducts and pancreatic duct is limited by persistent patient motion during image acquisition. The patient is not fully capable of cooperating with breath holding for high-resolution ductal evaluation. Pancreas is normal in morphology. Spleen is normal in size and enhancement. No adrenal nodules. Both kidneys demonstrate normal size and enhancement, without hydronephrosis. Nodes and vessels: No retroperitoneal or mesenteric adenopathy by size criteria. Aorta and inferior vena cava are normal in size. Bowel and peritoneum: Unenhanced bowel loops are normal in caliber. No free fluid. This study extends into the mid pelvis, and no inflammatory change or abnormal free fluid is seen. Bones and soft tissues: No ventral hernias. Bone marrow is normal in overall signal. IMPRESSION: The patient is unable to fully cooperate with the examination. No definite acute disease is found. MR cholangiography is very limited by need for breath holding over the course of the cholangiographic imaging. With this qualification there is no suspicion for active hepatic biliary disease. Several small hepatic cysts and a mildly lobulated caudate lobe hepatic cyst have been previously identified by CT scanning. Overall, no acute disease. Dictated by: Boom Perkins M.D. on 03/11/2020 at 15:00 Approved by: Boom Perkins M.D. on 03/11/2020 at 15:04
== END ==
PROVIDERS: PCP Internal Medicine; Referring Provider Internal Medicine; Visit Provider Internal Medicine
DX: R10.30 Lower abdominal pain, unspecified (principal); K76.89 Other specified diseases of liver
CPT/HCPCS: 74183

== ENCOUNTER → 2021-01-31 12:08 | Outpatient (CLI) | payer MEDICARE, MEDICAID, SELFPAY ==
--- NOTE | 2021-01-31 12:10 | DI.RAD.S_ITS ---
PROCEDURE: XR DEXA AXIAL SKELETON INDICATIONS: Asymptomatic menopausal state COMPARISON: None. FINDINGS: This blank DEXA report has been sent in error by the PACS system. The correct and complete report will be forthcoming in 1-2 days. Thank you for your patience and understanding. Dictated by: Leta Felix MD, PhD on 01/31/2021 at 16:29 Approved by: Leta Felix MD, PhD on 01/31/2021 at 16:29
== END ==
PROVIDERS: PCP Internal Medicine; Referring Provider Internal Medicine; Visit Provider Internal Medicine
DX: Z78.0 Asymptomatic menopausal state (principal); M81.0 Age-related osteoporosis without current pathological fracture; E11.9 Type 2 diabetes mellitus without complications; F10.20 Alcohol dependence, uncomplicated
CPT/HCPCS: 77080